=== PATIENT | female | born 1985 | race Caucasian/White ===

== ENCOUNTER 2019-10-13 11:46 | Outpatient (CLI) | payer BC, SELFPAY ==
[2019-10-13] MEDS: RHO(D) IMMUNE GLOBULIN 300 MCG SYRINGE IM (15:53)
== END 2019-10-13 11:47 | disposition home or self-care (01) ==
LOC: ANHLAB 11:51
PROVIDERS: PCP Obstetrics & Gynecology; Visit Provider Obstetrics & Gynecology
DX: Z34.90 Encounter for supervision of normal pregnancy, unspecified, unspecified trimester (principal); Z3A.00 Weeks of gestation of pregnancy not specified
CPT/HCPCS: 36415; 85461; 90384; 96372; J2790

== ENCOUNTER 2019-12-08 04:15 | Inpatient (IN) | payer BC, SELFPAY ==
[2019-12-08] VITALS (96 sets, daily range): BP systolic 109–154; BP diastolic 61–106; PULSE 67–148; RESP 12–18; TEMP 36.5–37.4; O2SAT 95–100; BMI 34.1
--- NOTE | 2019-12-08 04:41 | LDADM ---
This patient, Elaina Reyes, was admitted to Labor/Delivery/Recovery 105 on 12/08/19 at 04:15. Plans for labor, pain management and were discussed with patient. Patient/family oriented to hospital policies and general routines including ID bracelet, bed and alarms, visiting hours, pain management, procedures, bathroom and other care routines, personal items, smoking policy, room service/diet and guest tray routines, infant security routines, and visiting hours. Patient/Family are encouraged to report perceived risks to care and to ask questions if they do not understand what they are told or what they should do. See OBIX for further documentation.
--- NOTE | 2019-12-08 06:05 | WPDANESEPP ---
Anes - Eval Pre Procedure Procedure: labor epidural Date/Time: 12/08/19 06:05 Surgeon: fran Pre Op Diagnosis: Leaking Patient Data Age: 34 Gender: F Height: 1.65 m Weight: 93 kg Last Vital Signs Temp 36.5 C 12/08/19 04:30 Pulse 104 H 12/08/19 05:16 BP 134/92 H 12/08/19 05:16 Allergies Allergy/AdvReac Type Severity Reaction Status Date / Time Penicillins Allergy Intermediate Rash Verified 12/08/19 05:46 Home Medications Medication Instructions Recorded Confirmed Type [id number] fumarate-FA See Rx Instructions .ROUTE .COMPLEX 12/08/19 12/08/19 History [] levothyroxine 50 mcg PO DAILY 12/08/19 12/08/19 History Patient hx anesthesia problems: none Family hx anesthesia problems: none PMFSH Social History Social History Smoking status: Never smoker Second hand tobacco smoke exposure: No Substance use: never Gender identity (if verbalized by the patient): Female Spiritual care concerns: No Exam Day of Procedure 12/08/19 06:05
[2019-12-08 06:14] LABS: Basophils Percent Auto 0.2 % (0.2-1.2); Eosinophils Percent Auto 0.4 % (0-4.4); Hematocrit 38.7 % (37.0-47.0); Hemoglobin 12.5 g/dL (12.0-15.0); Immature Granulocyte Absolute 0.04 K/mm3 (0.00-0.031); Immature Granulocyte Percent A 0.4 % (0-0.5); Lymphocytes Absolute Auto 1.55 K/mm3 (0.9-3.2); Lymphocytes Percent Auto 16.1 % (18.3-44.2); Mean Corpuscular HGB Conc 32.3 g/dl (32-36); Mean Corpuscular Hemoglobin 30.4 pg (26-34); Mean Corpuscular Volume 94.2 fl (80-100); Mean Platelet Volume 12.3 fl (7.4-10.4); Monocytes Absolute Auto 0.9 K/mm3 (0.1-0.6); Monocytes Percent Auto 9.4 % (2.6-8.5); Neutrophils Absolute Auto 7.1 K/mm3 (1.3-6.7); Neutrophils Percent Auto 73.5 % (45.5-73.1); Platelet Count Result 225 k/mm3 (150-375); Red Blood Count 4.11 M/mm3 (4.2-5.4); Red Cell Distribution Width 13.7 % (11.5-14.5); White Blood Count 9.6 K/mm3 (4.5-10.0)
[2019-12-08] MEDS: LACTATED RINGERS 1,000 ML 125 ML IV CONT ×3 (07:40→11:50)
[2019-12-08] MEDS: OXYTOCIN 30 UNITS/NS 500 ML 30 UNITS/500 ML BAG IV CONT (07:40)
[2019-12-08] MEDS: ceFAZolin 2 GM/D5W 50 ML 2 GM/50 ML BAG IVPB (07:45)
--- NOTE | 2019-12-08 08:45 | WPDOBADMIT ---
Obstetrics - Admit Note Admission Note: record reviewed. Additions to the history and/or subsequent changes in the physical findings follow. 34 y/o at 36 weeks here with SROM early this morning. GBS neg. Receiving Ancef for status. Augmenting labor with oxytocin. otherwise uncomplicated. AVSS NST reactive TOCO: contractions every 2-3 min ABD soft, nontender, gravid, vertex EXT nontender Cervix 2/80/-2. Vertex. IUPC placed. A: IUP at 36 weeks with SROM. P: Ancef. Augmenting labor. Anticipate .
[2019-12-08] MEDS: SODIUM CHLORIDE 0.9% IV 300 ML 600 ML I-UTERINE (10:53)
--- NOTE | 2019-12-08 13:05 | P.PCNOB_ITS ---
OB - Delivery Note Procedure Delivery date: 12/08/19 Procedure: events: Labor < 37 Weeks Intrapartal events: None Induction method: none Delivery augmentation: pitocin Delivery monitor: external FHT, external uterine and internal uterine Route of delivery: Laceration description: Perineal - 1st Degree Delivery repair: vicryl (3-0) Specimen: Yes (cord blood) Estimated blood loss (mL): 85 Anesthesia type: Epidural Disposition: PACU Complications: None Narrative: 34 y/o at 36 weeks gestation who presented to the hospital with complaint of leakage of fluid. SROM was confirmed. She received Ancef for status despite GBS negative culture. Oxytocin was administered intravenously. She received an epidural for pain control. Her labor progressed and her cervix dilated completely. She pushed with good effort and delivered the 's head to the perineum, followed by the body. The nose and mouth were bulb suctioned. After a delay, the cord was clamped and cut. The infant was handed off the field. Cord blood was collected. The placenta delivered sp ontaneously and was grossly normal in appearance. The usual 3 vessel cord was noted. A first degree midline perineal laceration was sustained. This was reapproximated using 3 0 Vicryl in the usual layered fashion. Excellent hemostasis resulted as did excellent reapproximation of the normal anatomy. Needle and instrument counts were correct. The patient was taken to recovery room in stable condition. The went to the nursery in stable condition. I was present and scrubbed for the entire delivery. [place] [facility] Date of : 12/08/19 Time of : 12:42 Weeks of gestation at delivery: 36 Infant gender: Female Weight (pounds): 5 Weight (ounces): 3 presentation: vertex position: Right Occiput Anterior Placenta delivery description: Spontaneous and Normal Configuration cord vessel description: 3 Vessels score one minute: 8 score five minutes: 9
--- NOTE | 2019-12-08 13:08 | PM.OBDSVD ---
DS: Admitting Diagnosis Admitting Diagnosis Admitting Diagnosis: IUP at 36 weeks SROM <Vishnu Sosa MD - Last Filed: 01/09/20 11:47> DS: Discharge Diagnosis Discharge Diagnosis (1) SROM (spontaneous rupture of membranes): Status: Acute <Vishnu Sosa MD - Last Filed: 01/09/20 11:47> (2) delivery: Code(s): O60.10X0 - labor with delivery, unspecified trimester, not applicable or unspecified <Vishnu Sosa MD - Last Filed: 01/09/20 11:47> Status: Acute <Vishnu Sosa MD - Last Filed: 01/09/20 11:47> (3) (normal spontaneous vaginal delivery): Code(s): O80 - Encounter for full-term uncomplicated delivery <Vishnu Sosa MD - Last Filed: 01/09/20 11:47> Status: Acute <Vishnu Sosa MD - Last Filed: 01/09/20 11:47> OB - DS: Summary OB Procedures : None <Renzo Toledo MD - Last Filed: 12/10/19 07:45> OB Procedures Intrapartum: Spontaneous Vag Delivery <Renzo Toledo MD - Last Filed: 12/10/19 07:45> OB Procedures: : None <Renzo Toledo MD - Last Filed: 12/10/19 07:45> Time Spent with Patient Time attestation: Total time spent providing and/or coordinating discharge services: <Vishnu Sosa MD - Last Filed: 01/09/20 11:47> DS: Data Data Completed and Pending Labs on day of discharge: Labs from last 24 hours 12/08/19 12/08/19 12/08/19 04:56 04:55 04:55 WBC 9.6 RBC 4.11 L Hgb 12.5 Hct 38.7 MCV 94.2 MCH 30.4 MCHC 32.3 RDW 13.7 Plt Count 225 MPV 12.3 H Immature Gran % (Auto) 0.4 Neut % (Auto) 73.5 H Lymph % (Auto) 16.1 L [place] % (Auto) 9.4 H Eos % (Auto) 0.4 Baso % (Auto) 0.2 Lymph # (Auto) 1.55 [place] # (Auto) 0.9 H Eos # (Auto) 0.0 Baso # (Auto) 0.0 Abs Immat Gran (auto) 0.04 H Absolute Neuts (auto) 7.1 H Absolute Nucleated RBC 0.0 Nucleated RBC % 0.0 RPR Pending Blood Type A Negative Antibody Screen Negative <Vishnu Sosa MD - Last Filed: 01/09/20 11:47> Discharge Plan Discharge Attending physician on discharge: Vishnu Sosa <Vishnu Sosa MD - Last Filed: 01/09/20 11:47> Vishnu Sosa <Renzo Toledo MD - Last Filed: 12/10/19 07:45> Consulting providers: Tino Almodovar <Vishnu Sosa MD - Last Filed: 01/09/20 11:47> Discharging Clinician: Vishnu Sosa <Vishnu Sosa MD - Last Filed: 01/09/20 11:47> Vishnu Sosa <Renzo Toledo MD - Last Filed: 12/10/19 07:45> Anticipated Discharge Date/Time: 12/10/19 07:44 <Vishnu Sosa MD - Last Filed: 01/09/20 11:47> Patient Disposition: Home, Self-Care <Vishnu Sosa MD - Last Filed: 01/09/20 11:47> Activity: pelvic rest <Vishnu Sosa MD - Last Filed: 01/09/20 11:47> pelvic rest <Renzo Toledo MD - Last Filed: 12/10/19 07:45> Diet: regular <Vishnu Sosa MD - Last Filed: 01/09/20 11:47> regular <Renzo Toledo MD - Last Filed: 12/10/19 07:45> Discharge Instructions: Call or return if temperature above 100.4? F, increased abdominal pain, increased vaginal bleeding or any new problems. Education: Mom and Baby Guide Given to: Mother Follow-Up: Call your delivering provider's office for an appointment to be seen in: 6 Weeks Mom and baby should come to the [facility] for the follow-up appointment. Appointment Date/Time: December 12, 2019 at 11:00 am What to expect at your follow-up visit: Physical Assessment Call [phone] if you are unable to keep your appointment time. BREAST CARE: 1. Wear a snug supportive bra. 2. For engorgement discomfort: Breast Feeding: A. Apply warm moist washcloths B. Express milk as needed to relieve engorgement C. Wear loose clothing 3. For sore nipples:
[2019-12-08] MEDS: OXYTOCIN 30 UNITS/NS 500 ML 30 UNITS/500 ML BAG 125 UNITS IV CONT (13:24)
[2019-12-08 14:26] LABS: Rapid Plasma Reagin Non-Reactive (NonReactive)
[2019-12-08] MEDS: BENZOCAINE 20% AER SPR (*SP) 56 GM CAN 1 SPRAY TOPICAL (15:12)
[2019-12-08] MEDS: WITCH HAZEL 40 PADS 1 PAD TOPICAL (15:12)
--- NOTE | 2019-12-08 15:52 | PC.NURSE ---
1530-Patient transferred to post room #287 via wheelchair. Support person present. Oriented to unit, room, information board, rooming in, admission packet and security measures. Patient verbalizes understanding.
[2019-12-09] MEDS: LEVOTHYROXINE SODIUM 50 MCG TABLET PO (04:55)
[2019-12-09 05:58] LABS: Hematocrit 31.8 % (37.0-47.0); Hemoglobin 10.4 g/dL (12.0-15.0)
[2019-12-09 07:00] VITALS: BP 113/76; PULSE 89; RESP 16; TEMP 36.6; O2SAT 99
--- NOTE | 2019-12-09 07:18 | PM.OBPNVD ---
OB - PN: Subj Subjective Date/time seen: 12/09/19 07:18 Patient comments: no complaints, pain well controlled and tolerating diet [place] feeding status: exclusively breast feeding Narrative: patient doing well this AM. No complaints. Pain is well controlled. She reports minimal bleeding. She is ambulating and voiding without difficulty. She is tolerating PO. She denies N/V, fever, chills. OB - PN: Obj Data Labs CBC & Chem 7: 12/09/19 04:54 Labs: Laboratory Results - last 24 hr 12/08/19 12/08/19 12/09/19 04:55 04:56 04:54 Hgb 10.4 L Hct 31.8 L RPR Non-reactive Blood Type A Negative Antibody Screen Negative OB - PN A/P Plan day: 1 Plan: routine care Comments: patient doing well H/H stable continue routine care Time Spent With Patient Time: Total time spent is greater than 50% in coordination of care (as documented) at patient's floor/unit and/or counseling patient: Time with patient: less than 15 minutes Review of Systems Review of Systems: All systems reviewed & are unremarkable except as noted in HPI and below Exam Const: General: comfortable and no acute distress Resp: Effort & Inspection: normal respiratory effort Cardio: Rate: regular rate GI: GI Palp: Yes Soft to palpation and No Tenderness to palpation present (GI) Auscultation: normal bowel sounds Other: fundus firm and below umbilicus. Psych: Affect: normal affect
[2019-12-09] MEDS: MULTIVIT/MIN/PREN/FOL AC/IRON TABLET 1 TAB PO (08:00)
--- NOTE | 2019-12-09 09:01 | WPDANLDPN2 ---
Anes-Prog Note L&D Date/Time: 12/09/19 09:01 Comfortable throughout: labor and delivery Neuraxial method: epidural Epidural/Spinal procedure site: clean & non-tender Neuro status: Neuro function grossly intact. Cardiovascular status: normal Respiratory status: normal Airway patency: baseline Mental status: baseline Post-Op hydration status: normal Vital Signs: Last Vital Signs Temp 36.6 C 12/09/19 07:00 Pulse 89 12/09/19 07:00 Resp 16 12/09/19 07:00 BP 113/76 12/09/19 07:00 Pulse Ox 99 12/09/19 07:00 Post-procedural complaints: none Patient feedback: Patient satisfied with anesthetic care.
--- NOTE | 2019-12-09 10:00 | PC.NURSE ---
Consult with pt., mother reports eagerly fed during the night and has been sleepy the last several feedings. Discussed and the 37 week infant with possible inconsistent feeding patterns, sleepiness, needing to wake to feed and keep awake during feedings which may impact weight and output. Mother states she is supplementing after most feedings. Discussed pumping to stimulate milk supply and offer any EBM as part of supplement. Mother states she is willing to do what is needed for to feed.
[2019-12-09] MEDS: RHO(D) IMMUNE GLOBULIN 300 MCG SYRINGE IM (13:16)
[2019-12-09 19:00] VITALS: BP 116/77; PULSE 100; RESP 18; TEMP 36.1; O2SAT 100
--- NOTE | 2019-12-09 19:00 | PC.NURSE ---
Patient viewed the discharge video Mother & Baby Care, The First Two Weeks . Patient was given the opportunity and encouraged to ask questions. Patient verbalized understanding of information shared and has been given the mother/baby guide for home reference.
[2019-12-10] MEDS: LEVOTHYROXINE SODIUM 50 MCG TABLET PO (08:21)
[2019-12-10] MEDS: MULTIVIT/MIN/PREN/FOL AC/IRON TABLET 1 TAB PO (08:21)
[2019-12-10 08:30] VITALS: BP 115/75; PULSE 80; RESP 20; TEMP 36.4
[2019-12-12 10:57] VITALS: BP 148/81; PULSE 93; RESP 14
== END 2019-12-10 11:44 | disposition home or self-care (01) | DRG 807 ==
LOC: ANHLDR 13:09 → ANHOB2 12-09 11:23 → ANHLDR 12-13 09:59 → ANHOB2 12-13 09:59
PROVIDERS: Admitting Provider Obstetrics & Gynecology; Visit Provider Student in an Organized Health Care Education/Training Program
DX: O60.13X0 Preterm labor second trimester with preterm delivery third trimester, not applicable or unspecified (principal); Z37.0 Single live birth; Z3A.36 36 weeks gestation of pregnancy; O70.0 First degree perineal laceration during delivery; O99.284 Endocrine, nutritional and metabolic diseases complicating childbirth; E03.9 Hypothyroidism, unspecified
CPT/HCPCS: 36415; 85014; 85018; 85025; 85461; 86592; 86850; 86900; 86901; 90384; A9270; J0690; J2590; J2790; J2795; J7030; J7120